=== PATIENT | female | born 1970 | race American Indian/Alaskan Native ===

== ENCOUNTER → 2016-10-04 | Outpatient (CLI) | payer OTHER | LOC: CIMAGING 07:53 | PROVIDERS: ATTEND Obstetrics & Gynecology | DX: Z12.31 Encounter for screening mammogram for malignant neoplasm of breast (principal) | CPT/HCPCS: G0202 ==

== ENCOUNTER → 2016-10-16 | Outpatient (CLI) | payer OTHER | LOC: CIMAGING 12:38 | PROVIDERS: ATTEND Obstetrics & Gynecology | DX: R92.8 Other abnormal and inconclusive findings on diagnostic imaging of breast (principal) | CPT/HCPCS: G0206 ==

== ENCOUNTER 2016-10-29 19:47 | Observation (INO) | payer OTHER ==
--- NOTE | 2016-10-29 19:52 | EDPHY ---
HPI/HX/ROS/PE/MDM Narrative: CHIEF COMPLAINT: Lightheadedness, chest tightness HISTORY OF PRESENT ILLNESS: This patient is a 46 year old female arriving with her daughter by private vehicle complaining of chest tightness intermittently over the last couple days and weakness onset about thirty minutes ago. She states her sensation of tightness is localized to her left upper chest, and reports each episode lasts around 15 minutes. She states she can occasionally feel pain through to her back , but denies radiation elsewhere. Today, she states she was about to go for a walk, and developed the tight sensation along with generalized weakness and weakness and paresthesias in both arms. She denies diaphoresis. She was able to flower picker her daughter, who then drover her to the emergency department. She endorses nausea, and increased chest tightness with inspiration. She rates her discomfort as 7/10 currently. She denies recent illness or history of blood clots. No fever, chills, shortness of breath, palpitations, vomiting, diarrhea, urinary complaints, headache. REVIEW OF SYSTEMS: Aside from elements discussed in the HPI, a comprehensive 10-point review of systems was reviewed and is negative. PAST MEDICAL HISTORY: Hypertension, resolved. SOCIAL HISTORY: Family at bedside. Nonsmoker. VITAL SIGNS: Reviewed by me GENERAL: Uncomfortable, teary-eyed. Well-developed, well-nourished. HEENT: Atraumatic. Eyes: No icterus, no injection. Mouth: moist mucous membranes. No erythema or lesions. Neck: supple with no adenopathy. LUNGS: Clear to auscultation bilaterally, no wheezes, rhonchi or rales. No palpable chest pain. No rash. Not pleuritic. CARDIAC: Regular rate and rhythm, no rubs, murmurs or gallops. ABDOMEN: Soft, nontender, nondistended. BACK: No CVA tenderness. EXTREMITIES: No trauma. No edema. Range of motion is normal throughout. NEURO: Alert and oriented, grossly nonfocal. SKIN: Warm and dry, no rash. PSYCHIATRIC: Normal mentation, slightly anxious. Portions of this note were transcribed by a medical hospital sales. I personally performed a history, physical exam, medical decision making, and confirmed accuracy of information the transcribed note. ED Course: 12-LEAD EKG: Please see the full report in [facility]. My interpretation: Normal sinus rhythm, rate 94. No acute ischemic changes. This patient is a 46 year old female presenting with three day history of intermittent chest tightness and onset of lightheadedness and weakness about thirty minutes ago. Plan for administration of oxygen and 325mg PO aspirin. Plan for labs including CBC, BMP, Troponin, and D-Dimer. Plan for chest x-ray. Chest x-ray unremarkable. Reassessed patient. She confirmed that the pain has been intermittent, lasts approximately 10-15 minutes. More severe today, this is the fist time she has had numbness, weakness, or tingling. The patient is feeling better following administration of two doses of nitroglycerin. Troponin pending. Plan to administer third dose of nitroglycerin. Pain currently 07/07. Troponin negative. Discussed admission to the hospital with the patient. She is in agreement. She received 0.5 mg of Ativan as well as 2 mg of morphine for residual pain. Course discussed with Dr Frances. Patient admitted to the PCU. MDM: After history and physical examination, the differential for chest pain was considered, including but not limited to, myocardial ischemia, acute coronary syndrome, pulmonary embolus, chest wall pain, pleural inflammation and pulmonary infectious causes. - Data Points Imaging Results: Imaging Impressions Chest X-Ray 10/29/16 20:03 Impression: Negative. Imaging: I viewed and interpreted images myself Laboratory Results: Laboratory Results 10/29/16 20:10 10/29/16 20:10 10/29/16 10/29/16 10/29/16 20:10 20:10 20:10 WBC RBC Hgb Hct MCV MCH MCHC RDW Plt Count MPV Neut % (Auto) Lymph % (Auto) Montgomery % (Auto) Eos % (Auto) Baso % (Auto) Nucleat RBC Rel Count Absolute Neuts (auto) Absolute Lymphs (auto) Absolute Monos (auto) Absolute Eos (auto) Absolute Basos (auto) Absolute Nucleated RBC Immature Gran % Immature Gran # D-Dimer < 0.27 ug/mLFEU ug/mLFEU (0.00-0.50) Sodium 140 mEq/L mEq/L (134-144) Potassium 4.1 mEq/L mEq/L (3.5-5.2) Chloride 110 mEq/L mEq/L (97-110) Carbon Dioxide 19 mEq/l L mEq/l (22-31) Anion Gap 11 mEq/L mEq/L (8-16) BUN 17 mg/dL mg/dL (7-23) Creatinine 0.7 mg/dL mg/dL (0.6-1.0) Estimated GFR > 60 Glucose 106 mg/dL H mg/dL (70-100) Calcium 9.3 mg/dL mg/dL (8.5-10.4) Troponin I < 0.012 ng/mL ng/mL (0-0.034) Beta HCG, Qual NEGATIVE 10/29/16 20:10 WBC 9.16 10^3/uL 10^3/uL (3.80-9.50) RBC 4.62 10^6/uL 10^6/uL (4.18-5.33) Hgb 14.2 g/dL g/dL (12.6-16.3) Hct 41.4 % % (38.0-47.0) MCV 89.6 fL fL (81.5-99.8) MCH 30.7 pg pg (27.9-34.1) MCHC 34.3 g/dL g/dL (32.4-36.7) RDW 13.0 % % (11.5-15.2) Plt Count 406 10^3/uL H 10^3/uL (150-400) MPV 9.4 fL fL (8.7-11.7) Neut % (Auto) 58.6 % % (39.3-74.2) Lymph % (Auto) 32.5 % % (15.0-45.0) Montgomery % (Auto) 5.9 % % (4.5-13.0) Eos % (Auto) 2.3 % % (0.6-7.6) Baso % (Auto) 0.5 % % (0.3-1.7) Nucleat RBC Rel Count 0.0 % % (0.0-0.2) Absolute Neuts (auto) 5.36 10^3/uL 10^3/uL (1.70-6.50) Absolute Lymphs (auto) 2.98 10^3/uL 10^3/uL (1.00-3.00) Absolute Monos (auto) 0.54 10^3/uL 10^3/uL (0.30-0.80) Absolute Eos (auto) 0.21 10^3/uL 10^3/uL (0.03-0.40) Absolute Basos (auto) 0.05 10^3/uL 10^3/uL (0.02-0.10) Absolute Nucleated RBC 0.00 10^3/uL 10^3/uL (0-0.01) Immature Gran % 0.2 % % (0.0-1.1) Immature Gran # 0.02 10^3/uL 10^3/uL (0.00-0.10) D-Dimer Sodium Potassium Chloride Carbon Dioxide Anion Gap BUN Creatinine Estimated GFR Glucose Calcium Troponin I Beta HCG, Qual Medications Given: Discontinued Medications Acetaminophen (Tylenol) 1,000 mg PO EDNOW ONE Stop: 10/29/16 20:57 Last Admin: 10/29/16 21:03 Dose: 1,000 mg Aspirin (Aspirin) 324 mg PO EDNOW ONE Stop: 10/29/16 20:03 Last Admin: 10/29/16 20:07 Dose: 324 mg Lorazepam (Ativan Injection) 0.5 mg IVP EDNOW ONE Stop: 10/29/16 21:12 Last Admin: 10/29/16 21:27 Dose: 0.5 mg Morphine Sulfate (Morphine) 2 mg IVP EDNOW ONE Stop: 10/29/16 21:14 Last Admin: 10/29/16 21:55 Dose: 2 mg Nitroglycerin (Nitrostat) 0.4 mg SL Q5M PRN PRN Reason: Chest Pain Stop: 10/29/16 20:43 Last Admin: 10/29/16 20:56 Dose: 1 tab General Initial Vital Signs: Initial Vital Signs Temperature (C) 36.4 C 10/29/16 19:59 Heart Rate 99 10/29/16 19:59 Respiratory Rate 18 10/29/16 19:59 Blood Pressure 183/112 H 10/29/16 19:59 O2 Sat (%) 99 10/29/16 19:59 O2 Delivery Mode Nasal Cannula O2 (L/minute) 2 Allergies/Adverse Reactions: No Known Allergies Allergy (Verified 01/25/15 19:56) Home Medications: Medication Instructions Recorded Multivitamins [Multivitamin (*)] 1 each PO DAILY 10/29/16 Norgestimate-Ethinyl Estradiol 1 each PO DAILY 10/29/16 [Mononessa 28 Tablet] Departure - Departure Disposition: [facility] Inpatient Acute Clinical Impression: Chest pain, r/o acute coronary syndrome Condition: Good Report Scribed for: Ju Moulton Report Scribed by: Mariah Brown Date of Report: 10/29/16 Time of Report: 19:52
--- NOTE | 2016-10-29 19:55 | CPEKG ---
Heart Rate: 94 RR Interval: 638 P-R Interval: 178 QRSD Interval: 76 QT Interval: 352 QTC Interval: 441 P Hingham: 53 QRS Hingham: 25 T Wave Hingham: 52 EKG Severity - NORMAL ECG - EKG Impression: SINUS RHYTHM Electronically Signed By: Ju Moulton 29-Oct-2016 21:27:57
[2016-10-29] MEDS ORDERED: ASPIRIN 81 MG CHEWABLE TAB PO ONE (20:02)
[2016-10-29 20:34] LABS: % IMMATURE GRANULYOCYTES 0.2 % (0.0-1.1); ABSOLUTE IMMATURE GRANULOCYTES 0.02 10^3/uL (0.00-0.10); ADD DIFF? NO; ADD MORPH? NO; ADD SCAN? NO; ATYPICAL LYMPHOCYTE FLAG 0 (0-99); FRAGMENT RBC FLAG 0 (0-99); HEMATOCRIT 41.4 % (38.0-47.0); HEMOGLOBIN 14.2 g/dL (12.6-16.3); LEFT SHIFT FLG 0 (0-99); LIPEMIA HEMOLYSIS FLAG 90 (0-99); MEAN CELL HEMOGLOBIN 30.7 pg (27.9-34.1); MEAN CELL HEMOGLOBIN CONCENTR. 34.3 g/dL (32.4-36.7); MEAN CELL VOLUME 89.6 fL (81.5-99.8); MEAN PLATELET VOLUME 9.4 fL (8.7-11.7); PLATELET CLUMPS FLAG 20 (0-99); PLATELET COUNT 406 10^3/uL (150-400); RED BLOOD CELL COUNT 4.62 10^6/uL (4.18-5.33)
[2016-10-29] MEDS: NITROGLYCERIN 0.4 MG BTL SL PRN ×3 (20:40→20:56)
[2016-10-29 20:45] LABS: ANION GAP 11 mEq/L (8-16); CALCIUM 9.3 mg/dL (8.5-10.4); CARBON DIOXIDE 19 mEq/l (22-31); CHLORIDE 110 mEq/L (97-110); CREATININE 0.7 mg/dL (0.6-1.0); GLOMERULAR FILTRATION RATE > 60; GLUCOSE 106 mg/dL (70-100); POTASSIUM 4.1 mEq/L (3.5-5.2); SODIUM 140 mEq/L (134-144)
[2016-10-29] MEDS ORDERED: ACETAMINOPHEN 500 MG TAB PO ONE (20:56)
[2016-10-29 20:57] LABS: TROPONIN I < 0.012 ng/mL (0-0.034)
[2016-10-29] MEDS ORDERED: ONDANSETRON DISINTEGRATING 4 MG TAB PO PRN (21:04)
[2016-10-29] MEDS ORDERED: ACETAMINOPHEN 325 MG TAB PO PRN (21:04)
[2016-10-29] MEDS ORDERED: ONDANSETRON 4 MG/2 ML VIAL IVP PRN (21:04)
[2016-10-29] MEDS ORDERED: LORazepam 2 MG/ML INJ IVP ONE (21:11)
--- NOTE | 2016-10-29 22:13 | GHP ---
[f rep st] HISTORY AND PHYSICAL DATE OF ADMISSION: 10/29/2016 CHIEF COMPLAINT: Chest pain. HISTORY OF PRESENT ILLNESS: A 46-year-old female with no significant past medical history who prese nts with complaints of chest pain. The patient reports she has had 2 days of intermittent chest sym ptoms averaging 2-3 episodes per day, left-sided and substernal, described as a dull aching sensatio n. She cannot predictably endorse that it is worsened by exercise or improved by rest. The patient reports that it feels a bit better when she rubs her chest or when she sits up and takes deep breat hs. However, not predictably associated with position or activity and not predictably resolved by t ouch anteriorly. The patient endorses shortness of breath associated with the pain, some sensation of nausea. Denies dizziness or diaphoresis with the pain. She had similar episodes in July that c manuel and went. They seemed to do so on their own like these episodes. PAST MEDICAL HISTORY: Borderline hypertension, diet controlled. FAMILY HISTORY: Positive for heart something in her father in his 30s, but did not require any proc edures and did not have a heart attack. SOCIAL HISTORY: Negative for tobacco. Occasional alcohol. No illicit drugs or marijuana. REVIEW OF SYSTEMS: A 10-point review of systems is negative with the exception of that reported in the HPI. PHYSICAL EXAMINATION: VITAL SIGNS: Blood pressure is 137/79, heart rate 96, respiratory rate 15, 9 6% on 2 L nasal cannula. GENERAL: This is a healthy-appearing middle-aged female in no acute distr ess. HEENT: Notable for moist mucous membranes. Eye exam is negative for any icterus. CARDIAC: Patient is regular rate and rhythm. No murmurs, gallops, or rubs. PULMONARY: Clear to auscultatio n bilaterally. GASTROINTESTINAL: Positive bowel sounds. Abdomen is soft and nontender in all 4 qu adrants. MUSCULOSKELETAL: Negative for any lower extremity edema. SKIN: Negative for any rashes. NEUROLOGIC: The patient is alert and oriented x3. PSYCHIATRIC: She is pleasant and cooperative on interview and examination. DATA: White count 9.1, hematocrit 41.4, platelets of 406. Sodium of 140, creatinine is 0.7, glucos e of 106, troponin less than 0.012. EKG, which I personally reviewed and interpreted: Shows sinus rhythm, normal axis, normal intervals , with no acute ST-T changes. Chest x-ray, which I personally reviewed and interpreted: Shows no acute infiltrates or edema. ASSESSMENT AND PLAN: This is a 46-year-old female presenting with chest pain. 1. Acute chest pain. The patient has limited risk factors beyond borderline hypertension. We will admit. Rule out with serial troponins and EKGs. On telemetry overnight. If she rules out, we craig l order a graded treadmill stress test in the morning. 2. Borderline hypertension. Her pressures were more elevated at presentation. They have come down as she has settled in the emergency department. We will simply follow in the morning. We will ord er hemoglobin A1c and a lipid panel. The patient and family are interested in these other potential comorbidities. 3. Prophylaxis with Lovenox. 4. Diet: Cardiac. DISPOSITION: I expect in less than 2 midnights if the patient rules out and has normal stress testi ng tomorrow. I discussed the case with the emergency room physician. The patient will be triaged t o the PCU for cardiac monitoring and care. /[id number]/MODL
[2016-10-30 05:17] LABS: CHOLESTEROL 171 mg/dL (140-200); CHOLESTEROL/HDL RATIO 3.05 RATIO (1.00-4.44); HIGH DENSITY LIPOPROTEIN 56 mg/dL (40-95); LDL/HDL RATIO 1.45 RATIO (1.00-3.22); LOW DENSITY LIPOPROTEIN 81 mg/dL (70-100); NON-HIGH DENSITY LIPOPROTEIN 115 mg/dL (90-129); TRIGLYCERIDE 172 mg/dL (35-135); VERY LOW DENSITY LIPOPROTEINS 34 mg/dL (8-25)
[2016-10-30 05:22] LABS: TROPONIN I < 0.012 ng/mL (0-0.034)
[2016-10-30] MEDS ORDERED: ENOXAPARIN 40 MG/0.4 ML SYR SC SCH (09:00)
[2016-10-30 10:36] LABS: HEMOGLOBIN A1C 5.4 % (4.0-6.0)
[2016-10-30] MEDS ORDERED: NORGESTIMATE ETHINYL ESTRADIOL PO SCH (11:00)
--- NOTE | 2016-10-30 11:34 | CPR ---
[f rep st] NONINVASIVE CARDIAC PROCEDURE REPORT DATE OF PROCEDURE: 10/30/2016 REASON FOR TEST: 1. Chest pain. 2. Abnormal exercise EKG showing upsloping with 1-[address] depression. PROCEDURE: Exercise stress test according to Joseph protocol. FINDINGS: She was exercised for a total of 6 minutes 13 seconds according to the Joseph protocol. S he did have slight chest discomfort rating it a 1/10 to 2/10 with exertion. She did have upsloping in the inferior and lateral leads. She additionally had ST depression of 1-2 mm in the inferolatera l leads. She had no increase in chest discomfort during this stress test. She did go maximal effor t with a maximal heart rate of 176 at 6 minutes. Resting blood pressure was 124/80. Maximal stress test blood pressure was 138/80. Her heart rate and blood pressure did spontaneously return to norm al. This EKG was reviewed with Dr. Silvio Wu. He is in agreement with proceeding with a nuclear Kayla can stress test to further evaluate for cardiac ischemia. DISPOSITION: At this time, she currently is stable to return to her room. /[id number]/MODL
[2016-10-30] MEDS ORDERED: REGADENOSON 0.4 MG/5 ML SYR IVP ONE (13:55)
[2016-10-30 15:43] VITALS: BP 125/69; PULSE 84; RESP 20; TEMP 97.6; O2SAT 93
--- NOTE | 2016-10-30 16:05 | HOSPPROG ---
Hospitalist Progress Note Assessment/Plan: 46 yo F w CP neg stress see dc summary Subjective: no events tele. neg stress Objective: Vital Signs Temp Pulse Resp BP Pulse Ox 36.4 C 84 20 125/69 H 93 10/30/16 15:43 10/30/16 15:43 10/30/16 15:43 10/30/16 15:43 10/30/16 15:43 10/29/16 10/30/16 10/31/16 05:59 05:59 05:59 Intake Total 600 Output Total 0 Balance 600 - Physical Exam Constitutional: no apparent distress, appears nourished Eyes: PERRL, anicteric sclera Ears, Nose, Mouth, Throat: moist mucous membranes, ears appear normal Cardiovascular: regular rate and rhythym, no murmur, rub, or gallop Respiratory: no respiratory distress, no rales or rhonchi Gastrointestinal: normoactive bowel sounds, soft, non-tender abdomen Genitourinary: No kumar in urethra Skin: warm, normal color Musculoskeletal: full muscle strength, no muscle tenderness Neurologic: AAOx3, sensation intact bilaterally, weakness Psychiatric: interacting appropriately ICD10 Worksheet Patient Problems: Problems Problem Status Onset Chest pain Acute
--- NOTE | 2016-10-30 17:25 | GDS ---
[f rep st] DISCHARGE SUMMARY DISCHARGE DIAGNOSES: Atypical chest pain with negative stress test. Negative D-dimer. HOSPITAL COURSE: Please see admission history and physical by Dr. Zarate. The patient presente d with chest pain. It was atypical in nature. She had an exercise treadmill where she had good exe rcise tolerance with some nonspecific ST or T-wave changes. She had negative nuclear images. She h ad no events on telemetry. Discharged home. /[id number]/MODL
--- NOTE | 2016-10-30 19:50 | CPR ---
[f rep st] NONINVASIVE CARDIAC PROCEDURE REPORT DATE OF PROCEDURE: 10/30/2016 PROCEDURE: Treadmill nuclear stress test. REASON FOR TEST: 1. Chest pain. 2. Abnormal exercise treadmill stress test. FINDINGS: Resting EKG shows regular sinus rhythm. There were no arrhythmias, no ischemic changes. Resting blood pressure 136/80. Resting heart rate 99. STRESS PORTION: She was exercised according to the Joseph protocol for a total of 5 minutes and 30 seconds. Her maximal MET level was 6.6, maximal heart rate 170, maximal blood pressure 152/80. She had inferolateral upsloping. She did have mild chest discomfort rating a 1-2/10. Cardiolite was injected at peak exercise followed by saline flush. RECOVERY: She spontaneously recovered. Her EKG returned to normal. At this time, she is stable to go to [facility]. /[id number]/MODL MTDD
[2016-10-31] MEDS ORDERED: MULTIVITAMINS 1 EACH TAB PO SCH (09:00)
[2016-10-31] MEDS ORDERED: Norgestimate-Ethinyl Estradiol [Mononessa 28 Tablet] PO SCH (09:00)
== END 2016-10-30 16:50 | disposition home or self-care (01) ==
LOC: F2W 22:15
PROVIDERS: ADMIT Hospitalist; ATTEND Hospitalist
DX: R07.89 Other chest pain (principal); R94.31 Abnormal electrocardiogram [ECG] [EKG]
CPT/HCPCS: A9500; G0378; J2060; J2785

== ENCOUNTER → 2017-10-05 | Outpatient (CLI) | payer OTHER | LOC: CIMAGING 07:27 | PROVIDERS: ATTEND Internal Medicine | DX: Z12.31 Encounter for screening mammogram for malignant neoplasm of breast (principal) ==